=== PATIENT | male | born 2005 | race Caucasian/White ===

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

== ENCOUNTER 2023-03-16 13:33 | Emergency (ER) | payer MEDICAID ==
[~2023-03-16] VITALS: Ht 175.3 cm; Wt 95.5 kg
[2023-03-16 13:37] VITALS: BP 133/82; PULSE 94; RESP 16
[2023-03-16] MEDS ORDERED: FLUT9.9S BOTHNSTRLS (16:23)
[2023-03-16] MEDS ORDERED: PRED10TA MT (16:23)
== END 2023-03-16 16:58 | disposition home or self-care (01) ==
LOC: ER 13:33
DX: J06.9 Acute upper respiratory infection, unspecified (principal); H69.83 Other specified disorders of Eustachian tube, bilateral
CPT/HCPCS: 69209; 99283

== ENCOUNTER 2023-03-22 20:15 | Emergency (ER) | payer MEDICAID ==
[~2023-03-22] VITALS: Ht 175.3 cm; Wt 94.0 kg
[~2023-03-22 20:15] MED LIST: FLUT9.9S BOTHNSTRLS; PRED10TA MT
[2023-03-22 20:22] VITALS: O2SAT 99
[2023-03-22] MEDS ORDERED: AMOX-494 MT (21:04)
[2023-03-22 21:36] VITALS: BP 138/86; PULSE 80; RESP 20; TEMP 98.6
== END 2023-03-22 21:42 | disposition home or self-care (01) ==
LOC: ER 21:23
DX: H66.93 Otitis media, unspecified, bilateral (principal)
CPT/HCPCS: 99283